=== PATIENT | female | born 1960 | race Caucasian/White ===

== ENCOUNTER 2016-05-15 08:55 | Emergency (ER) | payer OTHER ==
[~2016-05-15] VITALS: Ht 162.6 cm; Wt 109.2 kg
[~2016-05-15 08:55] MED LIST: CIPR-255 PO; FLUT0.15 NAE; VERA240T20 PO
[2016-05-15 09:01] VITALS: Ht 162.6 cm; Wt 109.2 kg
[2016-05-15 09:40] LABS: BASO % 0.1 %; BASO ABS # 0.01 K/uL (0-0.2); COMPLETE YES; EOS % 0.1 %; HEMATOCRIT 41.5 % (37-47); IG% 0.3 %; LYMPH % 3.7 %; LYMPH ABS # 0.67 K/uL (1.2-3.4); MEAN CELL VOLUME 81.4 fL (80-100); MEAN CORPUSCULAR HEMOGLOBIN 28.6 pg (25-34); MEAN CORPUSCULAR HGB CONC 35.2 g/dl (32-36); MEAN PLATELET VOLUME 11.2 fL (7.4-10.4); MONO % 5.2 %; NEUT % 90.6 %; PLATELET COUNT 290 K/uL (130-400); WHITE BLOOD COUNT 18.33 K/uL (4.8-10.8)
[2016-05-15] MEDS ORDERED: SODIUM CHLORIDE 0.9% 1000ML 1,000 ML IV STA (09:50)
[2016-05-15] MEDS ORDERED: ACETAMINOPHEN IV 650 MG in EMPTY BAG 0 ML IV STA (09:50)
[2016-05-15] MEDS ORDERED: ACET-1256 PO (09:52)
[2016-05-15] MEDS ORDERED: CHLO1TAB PO (09:52)
[2016-05-15] MEDS ORDERED: CLR10 PO (09:56)
[2016-05-15 09:58] LABS: BUN/CREATININE RATIO 12.7 (10-20); CALCIUM 8.5 mg/dl (8.5-10.1); CREATININE 1.1 mg/dl (0.60-1.20); POTASSIUM 3.8 mmol/L (3.5-5.1)
--- NOTE | 2016-05-15 10:01 | EMERGENCY ROOM VISIT NOTE ---
History First contact with patient: 09:31 Chief Complaint: ABDOMINAL PAIN Stated Complaint: PAIN ON RIGHT SIDE, VOMITING, FEVER Nursing Triage Summary: Pt c/o n/v/d, fever and RUQ abd pain since 0300 this morning. tylenol last night for headache. History of Present Illness The patient is a 55 year old female who presents to the Emergency Room with complaints of abdominal pain, fever, nausea, vomiting, diarrhea. The patient states that she woke this morning around 3 AM with right upper quadrant pain, nausea, vomiting and diarrhea. The patient rates her discomfort a 6/10. She denies any pain in her chest, trouble breathing, cough. She denies any urinary symptoms. She denies any recent travel or antibiotic use. She has had cholecystectomy, hysterectomy and appendectomy. Review of Systems A 10 system review of systems was completed with positives and pertinent negatives listed in the HPI. Past Medical/Surgical History Medical Problems: (1) Kidney stones (2) UTI (urinary tract infection) Surgical Problems: (1) H/O: hysterectomy (2) Hx of appendectomy Family History FHx: cancer FHx: heart disease Social History Smoking Status: Never Smoker Marital Status: single Occupation Status: employed Current/Historical Medications Scheduled Chlorpheniramine & Phenylephri (Cold & Allergy), 1 TAB PO BID Fluticasone Propionate (Nasal) (Flonase Allergy Relief), 2 SPRAYS TORREY DAILY Loratadine (Claritin), 10 MG PO DAILY Ondasetron Odt (Zofran Odt), 4 MG SL Q6H Sulfa/Trimethoprim (Bactrim Ds 800MG/160MG), 1 TAB PO BID Verapamil Sust Rel (Calan Sr Ext Rel), 240 MG PO HS Scheduled PRN Acetaminophen (Tylenol), 1,000 MG PO Q8 PRN for Pain or Fever Allergies Coded Allergies: Talc (Verified Allergy, Mild, RASH, 05/15/16) Cefuroxime (Verified Allergy, Unknown, RASH, 05/15/16) Cephalosporins (Verified Allergy, Unknown, CEFZIL, 05/15/16) Physical Exam Vital Signs Date Time Temp Pulse Resp B/P Pulse Ox O2 Delivery O2 Flow Rate FiO2 05/15/16 13:47 37.9 94 18 126/74 92 Room Air 05/15/16 11:11 36.9 05/15/16 10:50 99 18 139/79 93 Room Air 05/15/16 09:25 38.8 05/15/16 09:01 37.7 105 18 120/66 96 Room Air Physical Exam VITALS: Vitals are noted on the nurse's note and reviewed by myself. Vital signs stable. The patient is febrile. GENERAL: This is a 55-year-old female, in no acute distress, nondiaphoretic, well-developed well-nourished. SKIN: The skin was warm, without rashes, erythema, edema, or bruising. There is no tenting of the skin. Capillary reflex less than 2 seconds. HEAD: Normocephalic atraumatic. EARS: The external ears are normal in appearance. EYES: Pupils equal round and reactive to light and accommodation. Conjunctivae without injection, sclerae without icterus. Extraocular movements intact. NOSE: Patent, turbinates without inflammation or discharge. MOUTH: Mucous membranes moist. Tonsils are not enlarged. Pharynx without erythema or exudate. Uvula midline. Airway patent. Tongue does not deviate. NECK: Supple without nuchal rigidity. No lymphadenopathy. No thyromegaly. Cervical spine is nontender. No JVD. HEART: Regular rate and rhythm without murmurs gallops or rubs. LUNGS: Clear to auscultation bilaterally without wheezes, rales or rhonchi. No retractions or accessory muscle use. ABDOMEN: Positive bowel sounds x 4. Soft, marked right upper quadrant and epigastric tenderness, without masses or organomegaly. Shin sign positive. MUSCULOSKELETAL: No muscle atrophy, erythema, or edema noted. Full range of motion in all extremities. Normal gait. Strength 5/5 throughout. NEURO: Patient was alert and oriented to person place and time. No focal neurological deficits. Medical Decision & Procedures ER Provider Diagnostic Interpretation: [~ rep ct add3]] BILIARY ULTRASOUND CLINICAL HISTORY: ruq pain, fever, h/o cholecystectomy COMPARISON STUDY: No previous studies for comparison. FINDINGS: The pancreas appears sonographically normal. There is a 13 mm right lobe hepatic cyst. The gallbladder is surgically absent. The common bile duct measures 6 mm. There is no right-sided hydronephrosis. IMPRESSION: 1. Surgically absent gallbladder 2. No evidence of ductal dilatation 3. No evidence of right-sided hydronephrosis 4. 13 mm right lobe hepatic cyst 5. Ultrasonographically normal pancreas Laboratory Results 05/15/16 09:20 Red Blood Count 5.10, Mean Corpuscular Volume 81.4, Mean Corpuscular Hemoglobin 28.6, Mean Corpuscular Hemoglobin Concent 35.2, Mean Platelet Volume 11.2, Neutrophils (%) (Auto) 90.6, Lymphocytes (%) (Auto) 3.7, Monocytes (%) (Auto) 5.2, Eosinophils (%) (Auto) 0.1, Basophils (%) (Auto) 0.1, Neutrophils # (Auto) 16.64, Lymphocytes # (Auto) 0.67, Monocytes # (Auto) 0.95, Eosinophils # (Auto) 0.01, Basophils # (Auto) 0.01 05/15/16 09:20 Test 05/15/16 09:20 05/15/16 10:50 05/15/16 11:58 White Blood Count 18.33 K/uL (4.8-10.8) Red Blood Count 5.10 M/uL (4.2-5.4) Hemoglobin 14.6 g/dL (12.0-16.0) Hematocrit 41.5 % (37-47) Mean Corpuscular Volume 81.4 fL (80-100) Mean Corpuscular Hemoglobin 28.6 pg (25-34) Mean Corpuscular Hemoglobin Concent 35.2 g/dl (32-36) Platelet Count 290 K/uL (130-400) Mean Platelet Volume 11.2 fL (7.4-10.4) Neutrophils (%) (Auto) 90.6 % Lymphocytes (%) (Auto) 3.7 % Monocytes (%) (Auto) 5.2 % Eosinophils (%) (Auto) 0.1 % Basophils (%) (Auto) 0.1 % Neutrophils # (Auto) 16.64 K/uL (1.4-6.5) Lymphocytes # (Auto) 0.67 K/uL (1.2-3.4) Monocytes # (Auto) 0.95 K/uL (0.11-0.59) Eosinophils # (Auto) 0.01 K/uL (0-0.5) Basophils # (Auto) 0.01 K/uL (0-0.2) RDW Standard Deviation 39.6 fL (36.4-46.3) RDW Coefficient of Variation 13.3 % (11.5-14.5) Immature Granulocyte % (Auto) 0.3 % Immature Granulocyte # (Auto) 0.05 K/uL (0.00-0.02) Anion Gap 11.0 mmol/L (3-11) Est Creatinine Clear Calc Drug Dose 70.6 ml/min Estimated GFR () 65.9 Estimated GFR (Non- 56.9 BUN/Creatinine Ratio 12.7 (10-20) Calcium Level 8.5 mg/dl (8.5-10.1) Total Bilirubin 0.6 mg/dl (0.2-1) Aspartate Amino Transf (AST/SGOT) 12 U/L (15-37) Alanine Aminotransferase (ALT/SGPT) 27 U/L (12-78) Alkaline Phosphatase 106 U/L (45-117) Total Protein 7.8 gm/dl (6.4-8.2) Albumin 3.8 gm/dl (3.4-5.0) Globulin 4.0 gm/dl (2.5-4.0) Albumin/Globulin Ratio 1.0 (0.9-2) Lipase 219 U/L (73-393) Lactic Acid Level 1.0 mmol/L (0.4-2.0) Urine Color DK YELLOW Urine Appearance CLOUDY (CLEAR) Urine pH 7.5 (4.5-7.5) Urine Specific [place] 1.031 (1.000-1.030) Urine Protein NEG (NEG) Urine Glucose (UA) NEG (NEG) Urine Ketones TRACE (NEG) Urine Occult Blood 2+ (NEG) Urine Nitrite NEG (NEG) Urine Bilirubin NEG (NEG) Urine Urobilinogen NEG (NEG) Urine Leukocyte Esterase SMALL (NEG) Urine WBC (Auto) 10-30 /hpf (0-5) Urine RBC (Auto) 5-10 /hpf (0-4) Urine Hyaline Casts (Auto) /lpf (0-5) Urine Epithelial Cells (Auto) >30 /lpf (0-5) Urine Bacteria (Auto) 1+ (NEG) Urine Pathogenic Casts /lpf (0) Urine Yeast (Auto) (NONE PRSENT) Medications Administered Medications (Trade) Dose Ordered Sig/Larry Route Start Time Stop Time Status Last Admin Dose Admin Sodium Chloride 1,000 ml @ 999 mls/hr Q1H1M STAT IV 05/15/16 09:50 05/15/16 10:50 DC 05/15/16 10:01 999 MLS/HR Acetaminophen/ Empty Bag (Ofirmev IV/ Empty Iv Bag 100ml) 65 ml @ 260 mls/hr ONE STAT IV 05/15/16 09:50 05/15/16 10:04 DC 05/15/16 10:52 260 MLS/HR Trimethoprim/ Sulfamethoxazole (Septra Ds 800/ 160MG Tab) 1 tab NOW STAT PO 05/15/16 13:44 05/15/16 13:45 DC 05/15/16 14:06 1 TAB ED Course The patient was seen and examined. Previous visits were reviewed. The patient was febrile on initial presentation. She has a leukocytosis of 18.33. She does not have any significant electrolyte abnormality. Lactic acid was not elevated. Lipase was not elevated. Urinalysis suggests urinary tract infection and a culture is pending Ultrasound of the right upper quadrant does not reveal any obvious ductal dilatation. There is no hydronephrosis on the right. The patient was hydrated with normal saline 1 L She was given 650 mg IV Tylenol She was given 1 oral Bactrim The patient presents to the emergency department with nausea, vomiting, diarrhea , fever and right upper abdominal pain that radiates to the back. She has not had any chest pain, trouble breathing, pleuritic pain to suggest pulmonary etiology or cardiac etiology. The patient is tender to palpation in the abdomen. The above workup suggests pyelonephritis. There is no evidence for ductal dilatation of the common bile duct. The patient will be treated with Bactrim and Zofran. Her symptoms had completely resolved with the IV Tylenol. The patient should return to the ER with any worsening symptoms. Otherwise, she should recheck with her family doctor next week. The patient was also seen and examined by who agrees with the assessment and treatment plan. Medical Decision DIFFERENTIAL DIAGNOSIS: Hepatitis, cholecystitis, cholangitis, biliary colic, pancreatitis, pneumonia, subdiaphragmatic abscess, appendicitis, inguinal hernia , nephrolithiasis, inflammatory bowel disease, mesenteric adenitis, peptic ulcer disease, GERD, gastritis, pancreatitis, myocardial infarction, pericarditis, ruptured aortic aneurysm, appendicitis, gastroenteritis, bowel obstruction, splenic infarct, diverticulitis, mesenteric ischemia, metabolic, peritonitis, among others. Impression Primary Impression: Pyelonephritis Departure Information Dispostion Home / Self-Care Condition GOOD Prescriptions Ondasetron Odt (ZOFRAN ODT) 4 Mg Tab 4 MG SL Q6H for Nausea, #6 TAB Prov: Lizabeth Woods PA-C 05/15/16 Sulfa/Trimethoprim (Bactrim Ds 800MG/160MG) Tab 1 TAB PO BID for 10 Days, #20 TAB Prov: Lizabeth Woods PA-C 05/15/16 Referrals Héctor Gallegos M.D. ([facility]) (PCP) Patient Instructions My [facility], Pyelonephritis - [facility] Additional Instructions Ibuprofen 600 mg every 6-8 hours or moderate pain Bactrim every 12 hours for 10 days Zofran as prescribed, as needed for nausea and vomiting Return to the emergency department if no improvement in 24-48 hours or if you are unable to keep the medication down Otherwise, recheck with your family doctor next week
--- NOTE | 2016-05-15 11:48 | DIAGNOSTIC IMAGING REPORT ---
BILIARY ULTRASOUND CLINICAL HISTORY: ruq pain, fever, h/o cholecystectomy COMPARISON STUDY: No previous studies for comparison. FINDINGS: The pancreas appears sonographically normal. There is a 13 mm right lobe hepatic cyst. The gallbladder is surgically absent. The common bile duct measures 6 mm. There is no right-sided hydronephrosis. IMPRESSION: 1. Surgically absent gallbladder 2. No evidence of ductal dilatation 3. No evidence of right-sided hydronephrosis 4. 13 mm right lobe hepatic cyst 5. Ultrasonographically normal pancreas Electronically signed by: Tayo Deluca M.D. 05/15/2016 11:46 AM Dictated Date/Time: 05/15/2016 11:45 AM
[2016-05-15 12:30] LABS: URINE APPEARANCE CLOUDY (CLEAR); URINE COLOR DK YELLOW; URINE EPITHELIAL CELL AUTO >30 /lpf (0-5); URINE NITRITE NEG (NEG); URINE PH 7.5 (4.5-7.5); URINE SPECIFIC GRAVITY 1.031 (1.000-1.030); UROBILINOGEN NEG (NEG); ZZUR CULT IF INDIC CLEAN CATCH YES
[2016-05-15 12:44] LABS: MANUAL MICROSCOPIC REQUIRED? NO; REVIEW REQ? YES; SULFASALICYLIC ACID NEG (NEG); URINE BILIRUBIN NEG (NEG)
--- NOTE | 2016-05-15 13:40 | EMERGENCY ROOM VISIT NOTE ---
ED Visit Note First contact with patient: 09:31 55-year-old female with right upper quadrant abdominal and back pain was fully evaluated by Codie Woods PA-C. Please see her note. I also independently evaluated the patient. The patient appears to have pyelonephritis. The patient will be started on antibiotics and will be instructed to have her urinalysis repeated within the next 10-14 days.
[2016-05-15] MEDS ORDERED: SULFAMETHOXAZOLE/TRIMETHOPRIM DS 800/160MG TAB PO STA (13:44)
[2016-05-15 13:47] VITALS: BP 126/74; PULSE 94; TEMP 37.9; O2SAT 92
[2016-05-15] MEDS ORDERED: SULF800T23 PO (13:53)
[2016-05-15] MEDS ORDERED: ONDA4TAB10 SL (13:53)
== END 2016-05-15 14:09 | disposition home or self-care (01) ==
LOC: C.EDB 08:59
DX: N12 Tubulo-interstitial nephritis, not specified as acute or chronic (principal); Z87.440 Personal history of urinary (tract) infections; Z87.442 Personal history of urinary calculi; Z90.710 Acquired absence of both cervix and uterus; Z79.899 Other long term (current) drug therapy; R19.7 Diarrhea, unspecified

== ENCOUNTER 2016-05-18 08:57 | Emergency (ER) | payer OTHER ==
[~2016-05-18] VITALS: Ht 162.6 cm; Wt 109.2 kg
[~2016-05-18 08:57] MED LIST changes: +ACET-1256 PO; +CHLO1TAB PO; -CIPR-255 PO; +CLR10 PO; +ONDA4TAB10 SL; +SULF800T23 PO
[2016-05-18 08:59] VITALS: TEMP 36.9; Ht 162.6 cm; Wt 109.2 kg
[2016-05-18] MEDS ORDERED: LACTTAB7 PO (09:46)
[2016-05-18 10:16] LABS: HEMATOCRIT 38.1 % (37-47); MEAN CELL VOLUME 79.7 fL (80-100); MEAN CORPUSCULAR HEMOGLOBIN 27.8 pg (25-34); MEAN CORPUSCULAR HGB CONC 34.9 g/dl (32-36); MEAN PLATELET VOLUME 11.1 fL (7.4-10.4); PLATELET COUNT 274 K/uL (130-400); RED BLOOD COUNT 4.78 M/uL (4.2-5.4); WHITE BLOOD COUNT 8.02 K/uL (4.8-10.8)
[2016-05-18 10:35] LABS: BUN/CREATININE RATIO 13.6 (10-20); CALCIUM 8.6 mg/dl (8.5-10.1); CREATININE 1.1 mg/dl (0.60-1.20); POTASSIUM 3.3 mmol/L (3.5-5.1)
[2016-05-18 10:38] LABS: ALB/GLOB RATIO 0.8 (0.9-2); BASO % 0.2 %; BASO ABS # 0.02 K/uL (0-0.2); COMPLETE YES; EOS % 1.4 %; IG% 0.2 %; LYMPH % 12.3 %; LYMPH ABS # 0.99 K/uL (1.2-3.4); MONO % 9.6 %; NEUT % 76.3 %
--- NOTE | 2016-05-18 12:30 | EMERGENCY ROOM VISIT NOTE ---
History Report prepared by Steve: Lizabeth Constantino Under the Supervision of: Dr. Scooby Polo D.O. First contact with patient: 09:52 Chief Complaint: ABDOMINAL PAIN Stated Complaint: STOMACH PAIN, DIARRHEA, BLOOD Nursing Triage Summary: Abdominal pain, diarrhea, states noticed blood in her stool. History of Present Illness The patient is a 55 year old female who presents to the Emergency Room with complaints of persistent abdominal pain that began prior to arrival. She currently rates her discomfort as an 8/10 in severity. The patient states that two days ago she was evaluated in the emergency department and diagnosed with a kidney infection. She states that she was started on an antibiotic and discharged home. The patient states that since then she developed diarrhea and states that she consulted her PCP. She states that since she has began experiencing rectal bleeding. The patient additionally notes lower abdominal pain and states that she vomited today. The patient denies being on any blood thinners. She notes discomfort at her rectum due to diarrhea Source of History: patient Onset: prior to arrival Position: abdomen Symptom Intensity: 8/10 Timing: other (prior to arrival) Associated Symptoms: + diarrhea Note: Associated Symptoms: rectal bleeding Review of Systems See HPI for pertinent positives & negatives. A total of 10 systems reviewed and were otherwise negative. Past Medical & Surgical Medical Problems: (1) Kidney stones (2) UTI (urinary tract infection) Surgical Problems: (1) H/O: hysterectomy (2) Hx of appendectomy Family History FHx: cancer FHx: heart disease Social History Smoking Status: Never Smoker Marital Status: single Occupation Status: employed Current/Historical Medications Scheduled Fluticasone Propionate (Nasal) (Flonase Allergy Relief), 2 SPRAYS TORREY DAILY Lactobacillus (Acidophilus), 1 TAB PO BID Loratadine (Claritin), 10 MG PO DAILY Ondasetron Odt (Zofran Odt), 4 MG SL Q6H Sulfa/Trimethoprim (Bactrim Ds 800MG/160MG), 1 TAB PO BID Verapamil Sust Rel (Calan Sr Ext Rel), 240 MG PO HS Allergies Coded Allergies: Talc (Verified Allergy, Mild, RASH, 05/18/16) Cefuroxime (Verified Allergy, Unknown, RASH, 05/18/16) Cephalosporins (Verified Allergy, Unknown, CEFZIL, 05/18/16) Physical Exam Vital Signs Date Time Temp Pulse Resp B/P Pulse Ox O2 Delivery O2 Flow Rate FiO2 05/18/16 10:46 76 20 148/62 94 05/18/16 08:59 36.9 70 17 132/83 96 Room Air Physical Exam CONSTITUTIONAL/VITAL SIGNS: Reviewed / noted above. GENERAL: Non-toxic in appearance. INTEGUMENTARY: Warm, dry, and [place]. HEAD: Normocephalic. EYES: without scleral icterus or trauma. ENT/OROPHARYNX: clear and moist. LYMPHADENOPATHY/NECK: Is supple without lymphadenopathy or meningismus. RESPIRATORY: Lungs clear and equal. CARDIOVASCULAR: Regular rate and rhythm. GI/ABDOMEN: Soft and nontender. No organomegaly or pulsatile mass. No rebound or guarding. Normal bowel sounds. RECTAL: Light brown stool, trace guaiac positive, no gross blood. EXTREMITIES: Warm and well perfused. BACK: No CVA tenderness. NEUROLOGICAL: Intact without focal deficits. PSYCHIATRIC: normal affect. MUSCULOSKELETAL: Normally developed with good muscle tone. Medical Decision & Procedures Laboratory Results 05/18/16 09:51 Red Blood Count 4.78, Mean Corpuscular Volume 79.7, Mean Corpuscular Hemoglobin 27.8, Mean Corpuscular Hemoglobin Concent 34.9, Mean Platelet Volume 11.1, Neutrophils (%) (Auto) 76.3, Lymphocytes (%) (Auto) 12.3, Monocytes (%) (Auto) 9.6, Eosinophils (%) (Auto) 1.4, Basophils (%) (Auto) 0.2, Neutrophils # (Auto) 6.11, Lymphocytes # (Auto) 0.99, Monocytes # (Auto) 0.77, Eosinophils # (Auto) 0.11, Basophils # (Auto) 0.02 05/18/16 09:51 Test 05/18/16 09:51 White Blood Count 8.02 K/uL (4.8-10.8) Red Blood Count 4.78 M/uL (4.2-5.4) Hemoglobin 13.3 g/dL (12.0-16.0) Hematocrit 38.1 % (37-47) Mean Corpuscular Volume 79.7 fL (80-100) Mean Corpuscular Hemoglobin 27.8 pg (25-34) Mean Corpuscular Hemoglobin Concent 34.9 g/dl (32-36) Platelet Count 274 K/uL (130-400) Mean Platelet Volume 11.1 fL (7.4-10.4) Neutrophils (%) (Auto) 76.3 % Lymphocytes (%) (Auto) 12.3 % Monocytes (%) (Auto) 9.6 % Eosinophils (%) (Auto) 1.4 % Basophils (%) (Auto) 0.2 % Neutrophils # (Auto) 6.11 K/uL (1.4-6.5) Lymphocytes # (Auto) 0.99 K/uL (1.2-3.4) Monocytes # (Auto) 0.77 K/uL (0.11-0.59) Eosinophils # (Auto) 0.11 K/uL (0-0.5) Basophils # (Auto) 0.02 K/uL (0-0.2) RDW Standard Deviation 39.2 fL (36.4-46.3) RDW Coefficient of Variation 13.4 % (11.5-14.5) Immature Granulocyte % (Auto) 0.2 % Immature Granulocyte # (Auto) 0.02 K/uL (0.00-0.02) Anion Gap 11.0 mmol/L (3-11) Est Creatinine Clear Calc Drug Dose 70.6 ml/min Estimated GFR () 65.9 Estimated GFR (Non- 56.9 BUN/Creatinine Ratio 13.6 (10-20) Calcium Level 8.6 mg/dl (8.5-10.1) Total Bilirubin 0.3 mg/dl (0.2-1) Aspartate Amino Transf (AST/SGOT) 17 U/L (15-37) Alanine Aminotransferase (ALT/SGPT) 30 U/L (12-78) Alkaline Phosphatase 84 U/L (45-117) Total Protein 7.0 gm/dl (6.4-8.2) Albumin 3.2 gm/dl (3.4-5.0) Globulin 3.8 gm/dl (2.5-4.0) Albumin/Globulin Ratio 0.8 (0.9-2) Lipase 257 U/L (73-393) Laboratory results as stated above per my review. ED Course 0953: Previous medical records were reviewed. The patient was evaluated in room B8. A complete history and physical examination was performed. 1231: I reevaluated the patient and she is doing well. I discussed the exam findings with her and I discussed the treatment plan. She verbalized complete understanding and agreement. She is ready to go home. Medical Decision Differential diagnosis: Etiologies such as diverticulosis, AVM, coagulopathy, colitis, inflammatory bowel disease, malignancy, Sue-Smith tear, esophagitis, peptic ulcer disease , variceal bleed, gastritis, epistaxis, fissure, hemorrhoids, as well as others were entertained. Is a 55-year-old female who presents to the ED with a chief complaint of diarrhea. The patient states that she was started on antibiotic 2 days ago for UTI. She developed some mild discomfort in her rectum and bleeding with bowel movements since starting the antibiotics I she has developed diarrhea. The patient was concerned about the blood. It is a small amount of blood in the stools. It is there when she wipes. Her vital signs are normal. Her physical exam was unremarkable. Guaiac testing of the stool did not show any gross blood. It was trace guaiac positive. There is no obvious external hemorrhoids. There is no gross bleeding on exam. CBC did not reveal anemia. Chemistry panel was unremarkable. The patient was told the results. She is felt to be stable for discharge. Her bleeding is likely related to diarrhea and hemorrhoids or rectal irritation from diarrhea. The patient was told to stop her antibiotics as her urine culture did not show infection. Impression Primary Impression: Internal bleeding hemorrhoids Additional Impression: diarrhea related to antibiotics Scribe Attestation The scribe's documentation has been prepared under my direction and personally reviewed by me in its entirety. I confirm that the note above accurately reflects all work, treatment, procedures, and medical decision making performed by me. Departure Information Dispostion Home / Self-Care Referrals Héctor Gallegos M.D.([facility]) (PCP) Forms Call Back Authorization, HOME CARE DOCUMENTATION FORM, IMPORTANT VISIT INFORMATION Patient Instructions My [facility] [place] Additional Instructions Use [id number] hemorrhoid cream or other [id number] medications. Follow-up with your doctor for recheck. Return for any new symptoms or worsening. Problem Qualifiers
[2016-05-18 12:36] VITALS: BP 127/70; PULSE 83; O2SAT 95
== END 2016-05-18 12:37 | disposition home or self-care (01) ==
LOC: C.EDB 08:58
DX: K64.8 Other hemorrhoids (principal); K52.1 Toxic gastroenteritis and colitis; T36.95XA Adverse effect of unspecified systemic antibiotic, initial encounter; Z87.442 Personal history of urinary calculi; Z87.440 Personal history of urinary (tract) infections; Z90.710 Acquired absence of both cervix and uterus; Z79.899 Other long term (current) drug therapy

== ENCOUNTER → 2016-07-04 | Outpatient (CLI) | payer OTHER ==
[~2016-07-04] MED LIST changes: -ACET-1256 PO; -CHLO1TAB PO; +LACTTAB7 PO; -SULF800T23 PO
--- NOTE | 2016-07-05 12:47 | MAMMOGRAPHY REPORT ---
BILATERAL DIGITAL SCREENING MAMMOGRAM TOMOSYNTHESIS WITH CAD: 07/04/2016 CLINICAL HISTORY: Routine screening. Patient has no complaints. TECHNIQUE: Breast tomosynthesis in addition to standard 2D mammography was performed. Current study was also evaluated with a Computer Aided Detection (CAD) system. COMPARISON: Comparison is made to exams dated: 10/05/2011 mammogram, 02/11/2009 mammogram, 08/07/2002 mammogram, and 01/09/2002 mammogram - [facility]. BREAST COMPOSITION: There are scattered areas of fibroglandular density in both breasts. FINDINGS: There are benign-appearing round and rim calcifications diffusely scattered throughout th e breasts. No suspicious mass, architectural distortion or cluster of microcalcifications is seen. IMPRESSION: ACR BI-RADS CATEGORY 2: BENIGN There is no mammographic evidence of malignancy. A 1 year screening mammogram is recommended. The p atient will receive written notification of the results. Approximately 10% of breast cancers are not detected with mammography. A negative mammographic repor t should not delay biopsy if a clinically suggestive mass is present. Kendra Avila M.D. ay/:07/04/2016 17:40:48 Biochemist: Rosy MCRAE(R)(M), [facility] letter sent: Normal 1/2 BI-RADS Code: ACR BI-RADS Category 2: Benign
== END | disposition home or self-care (01) ==
LOC: C.MAMM 14:18
PROVIDERS: ATTEND Family Medicine
DX: Z12.31 Encounter for screening mammogram for malignant neoplasm of breast (principal)

== ENCOUNTER → 2017-04-27 | Outpatient (CLI) | payer OTHER ==
[~2017-04-27] MED LIST changes: -ONDA4TAB10 SL
== END | disposition home or self-care (01) ==
LOC: C.CPL 11:37
PROVIDERS: ATTEND Orthopaedic Surgery
DX: S83.232D Complex tear of medial meniscus, current injury, left knee, subsequent encounter (principal); X58.XXXD Exposure to other specified factors, subsequent encounter